=== PATIENT | female | born 1980 | race African-American/Black ===

== ENCOUNTER 2017-04-03 22:58 | Emergency (ER) | payer OTHER ==
[~2017-04-03] VITALS: Ht 165.1 cm; Wt 84.8 kg
[2017-04-03 23:22] VITALS: BP 122/71
[2017-04-03] MEDS ORDERED: LIDOCAINE 1% / SOD BICARB 8.4% 20 ML VIAL. IJ ONE (23:55)
[2017-04-04] MEDS ORDERED: SULF1TAB23 PO (00:26)
[2017-04-04] MEDS ORDERED: MUPI15CR TP (00:26)
[2017-04-04] MEDS ORDERED: HYDR-971 PO (00:26)
--- NOTE | 2017-04-04 00:27 | PHYS DOC ---
Past Medical History Past Medical History: Hypertension Past Surgical History: Other Additional Past Surgical Histo: FISTULA, LEEP, ADOMINAL SURGERY Alcohol Use: Occasionally Drug Use: None Adult General Chief Complaint Chief Complaint: SKIN RASH/ABSCESS HPI HPI Patient is a 36 year old female with history of hypertension who presents today with a right labial abscess for one week. Patient denies any fever. Patient is requesting we drain the abscess. Review of Systems Review of Systems Constitutional: Denies fever or chills [] Musculoskeletal: Denies back pain or joint pain [] Integument:right labia abscess Neurologic: Denies headache, focal weakness or sensory changes [] Current Medications Current Medications Current Medications Medications (Trade) Dose Ordered Sig/Colin Start Time Stop Time Status Last Admin Dose Admin Lidocaine/Sodium Bicarbonate (Buffered Lidocaine 1%) 20 ml 1X ONCE 04/03/17 23:55 04/03/17 23:56 DC 04/03/17 23:55 20 ML Allergies Allergies Allergies Coded Allergies Type Severity Reaction Last Updated Verified NSAIDS (Non-Steroidal Anti-Inflamma Allergy Mild SWELLING 12/04/15 Yes Physical Exam Physical Exam Constitutional: Well developed, well nourished, no acute distress, non-toxic appearance. [] Skin: Right exterior labia with a small none indurated firm area consistent with an ingrown hair. The area has no fluctuance, the area is tender to palpate but no redness or warmth. Back: No tenderness, no CVA tenderness. [] Extremities: No tenderness, no cyanosis, no clubbing, ROM intact, no edema. [] Neurologic: Alert and oriented X 3, normal motor function, normal sensory function, no focal deficits noted. [] Psychologic: Affect normal, judgement normal, mood normal. [] Current Patient Data Vital Signs Vital Signs Date Time Temp Pulse Resp B/P (MAP) Pulse Ox O2 Delivery O2 Flow Rate FiO2 04/03/17 23:22 98.7 65 17 97 Room Air 98.7 EKG EKG [] Radiology/Procedures Radiology/Procedures [] Course & Med Decision Making Course & Med Decision Making Pertinent Labs and Imaging studies reviewed. (See chart for details) Patient has an ingrown hair on the right labia that is not ready to drain. Patient is insisting to have it drained. Informed patient I can try to aspirate it to see if there is anything in the area. I used an 18 gauge needle and attempted to aspirate the area and nothing drained out of it. Patient was asking if we can can put some numbing medicine in the area. I offered to put buffered lidocaine. When I informed her the numbing medicine will burn/sting when going in, she stated she does not want any numbing medicine. Offered her hydrocodone for pain in the Ed. Discharge her with Bactroban ointment and Bactrim. Warm compresses recommended to the area. Follow-up with PCP in one week. Tetanus up to date. Ivelisse Disclaimer Ochoaon Disclaimer This electronic medical record was generated, in whole or in part, using a voice recognition dictation system. Departure Departure Impression: Primary Impression: Ingrown hair Disposition: 01 HOME, SELF-CARE Condition: STABLE Referrals: NO PCP (PCP) follow up with your doctor in one week Patient Instructions: Ingrown Hair Additional Instructions: You were seen for ingrown hair on your right labial area. Do not shave. Apply warm compresses to the area. Use the medications prescribed as ordered. Make sure you complete the oral antibiotics. Use the topical cream as prescribed. Consider following up with your primary care doctor in the next 7 days. Scripts Sulfamethoxazole/Trimethoprim (BACTRIM 400-80 MG TABLET) 1 Each Tablet 1 TAB PO BID, #20 TAB Prov: SAMM MARIA APRN 04/04/17 Mupirocin Calcium (BACTROBAN CREAM) 15 Gm Cream..g. 1 ARMANI TP TID, #30 GM Prov: SAMM MARIA APRN 04/04/17 Hydrocodone/Apap 5-325 (NORCO 5-325 TABLET) 1 Each Tablet 1-2 TAB PO Q4-6HRS, #10 TAB Prov: SAMM MARIA APRN 04/04/17 SAMM MARIA APRN Apr 04, 2017 00:27
[2017-04-04] MEDS ORDERED: HYDROcodone/APAP 5/325MG 1 TAB TABLET PO ONE (00:30)
== END 2017-04-04 00:20 | disposition home or self-care (01) ==
LOC: ER 22:58
DX: L73.1 Pseudofolliculitis barbae (principal); N76.4 Abscess of vulva; I10 Essential (primary) hypertension; Z88.6 Allergy status to analgesic agent
CPT/HCPCS: 56405; 99284-25